=== PATIENT | female | born 1990 | race Caucasian/White ===

== ENCOUNTER → 2017-09-15 | Outpatient (CLI) | payer OTHER ==
--- NOTE | 2017-09-15 08:48 | US ---
EXAMINATION TYPE: US abdomen complete DATE OF EXAM: 09/15/2017 COMPARISON: NONE CLINICAL HISTORY: R10.9 Abdominal pain, R10.84. Intermittent pelvic and lower back pain x couple kenny hs EXAM MEASUREMENTS: Liver Length: 14.0 cm Gallbladder Wall: 0.2 cm CBD: 0.4 cm Spleen: 10.9 cm Right Kidney: 10.4 x 4.4 x 4.9 cm Left Kidney: 10.5 x 4.9 x 5.2 cm Pancreas: wnl Liver: scanned intercostally, limited by rib shadowing, visualized portions wnl Gallbladder: wnl Evidence for sonographic Turner's sign: no CBD: visualized portions wnl, limited by overlying bowel gas Spleen: wnl Right Kidney: fullness of renal pelvis without hydronephrosis, likely related to phase of excretion. Left Kidney: fullness of renal pelvis without hydronephrosis, likely related to phase of excretion. Upper IVC: wnl Abd Aorta: wnl The liver is homogenous. The intrahepatic portion of the IVC and proximal abdominal aorta are within normal limits. There is no evidence of cholelithiasis. Common bile duct is unremarkable. The visu alized portions of the pancreas are homogenous. The spleen is unremarkable. Kidneys are symmetric a nd free of hydronephrosis. No renal lesions are seen. IMPRESSION: No sonographic evidence of cholelithiasis, acute cholecystitis or hydronephrosis.
--- NOTE | 2017-09-15 10:05 | US ---
EXAMINATION TYPE: US pelvic complete DATE OF EXAM: 09/15/2017 COMPARISON: NONE CLINICAL HISTORY: R10.9 Abdominal pain, R10.84. Intermittent pelvic and lower back pain x couple kenny hs, patient has IUD, 2, para 2 TECHNIQUE: . Transabdominal sonographic images of the pelvis were acquired. Date of LMP: LMP unknown EXAM MEASUREMENTS: Uterus: 11.8 x 4.0 x 5.8 cm Endometrial Stripe: 0.7 cm Right Ovary: 2.9 x 2.0 x 2.3 cm Left Ovary: 4.0 x 2.9 x 1.9 cm 1. Uterus: anteverted, wnl 2. Endometrium: IUD seen in place 3. Right Ovary: wnl 4. Left Ovary: Follicle measuring 1.5 x 1.4 x 1.3cm. 5. Bilateral Adnexa: wnl 6. Posterior cul-de-sac: small amount of free fluid IMPRESSION: Appropriately placed intrauterine device centrally within the endometrium. Small amount o f free fluid, likely physiologic in nature.
== END | disposition home or self-care (01) ==
LOC: RADUSWWP 07:31
PROVIDERS: ATTEND Internal Medicine
DX: R10.2 Pelvic and perineal pain (principal); R10.84 Generalized abdominal pain
CPT/HCPCS: 76700; 76856

== ENCOUNTER → 2021-12-08 | Outpatient (CLI) | payer OTHER ==
--- NOTE | 2021-12-09 22:37 | MR ---
EXAMINATION TYPE: MR knee LT wo con DATE OF EXAM: 12/08/2021 COMPARISON: Outside left knee x-ray November 22, 2021 HISTORY: Left knee pain, locking, and swelling for years per patient. TECHNIQUE: Multiplanar, multisequence imaging of the left knee is performed without IV contrast. FINDINGS: MEDIAL MENISCUS: Anterior and posterior horns are intact without tear. LATERAL MENISCUS: Anterior and posterior horns are intact without tear. CRUCIATE LIGAMENTS: The anterior and posterior cruciate ligaments are intact and unremarkable. COLLATERAL LIGAMENTS: The medial collateral ligament and lateral collateral ligament complex are inta ct and unremarkable. EXTENSOR MECHANISM: Visualized quadriceps and patellar tendons are intact. EFFUSION: No significant suprapatellar joint effusion. POPLITEAL CYST: No popliteal/zambrano cyst. TRICOMPARTMENT SPACES: Mild narrowing patellofemoral compartment. No significant spurring is seen. CARTILAGE: Some chondromalacia patella with some cartilaginous fissuring along posterior aspect of th e patella sagittal image 18. BONE MARROW SIGNAL: No focal abnormal marrow signal is appreciated. OTHER: Increased fluid signal superior aspect Hoffa's fat pad just posterior to the proximal patella r tendon. IMPRESSION: Mild patellofemoral joint arthropathy as detailed above. No meniscal or ligamentous tear is seen. 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 Correlate clinically.
== END | disposition home or self-care (01) ==
LOC: RADMRIMAIN 19:54
PROVIDERS: ATTEND Orthopaedic Surgery
DX: M17.12 Unilateral primary osteoarthritis, left knee (principal)